=== PATIENT | female | born 1975 | race Asian ===

== ENCOUNTER 2016-12-14 09:27 | Emergency (ER) | payer BC ==
[~2016-12-14] VITALS: Ht 154.9 cm; Wt 55.0 kg
[~2016-12-14 09:27] MED LIST: ALPR-475 PO; FEBU40TA PO; IRON SUPPL; ONDA4TAB10 PO; OXYC-223 PO
[2016-12-14 10:46] LABS: BLOOD UREA NITROGEN 10 mg/dL (7-18)
[2016-12-14 10:51] LABS: ASPARTATE AMINO TRANSFERASE 11 U/L (15-37)
[2016-12-14 11:19] LABS: IS PT STATUS REG ER OR PRE ER? YES
[2016-12-14 11:35] VITALS: BP 126/85
== END 2016-12-14 11:55 | disposition home or self-care (01) ==
LOC: ED 10:16
DX: R55 Syncope and collapse (principal)
CPT/HCPCS: 36415; 71020; 80053; 84484; 84703; 85025; 85379; 85730; 93005

== ENCOUNTER 2018-07-27 01:47 | Emergency (ER) | payer BC, OTHER ==
[~2018-07-27] VITALS: Ht 154.9 cm; Wt 58.6 kg
[~2018-07-27 01:47] MED LIST changes: -OXYC-223 PO; +OXYC-306 PO
[2018-07-27 03:04] LABS: HCG UR SG 1.018 (1.003-1.030); MICROSCOPIC NOT IND
[2018-07-27 03:14] LABS: ALANINE AMINOTRANSFERASE 22 U/L (12-78); ALBUMIN 3.7 g/dL (3.4-5.0); ANION GAP 6 mmol/L (5-15); CALCIUM 8.5 mg/dL (8.5-10.1); CHLORIDE 110 mmol/L (98-107); CREATININE 0.64 mg/dL (0.55-1.02)
[2018-07-27 03:16] LABS: ALKALINE PHOSPHATASE 84 U/L (45-117); BILIRUBIN,TOTAL 0.2 mg/dL (0.2-1.0); TOTAL PROTEIN 7.5 g/dL (6.4-8.2)
[2018-07-27 03:16] LABS: CULTURE INDICATED? NO
[2018-07-27 03:28] LABS: BASOPHILS # (AUTO) 0.04 x10^3/uL (0-0.1); BASOPHILS % (AUTO) 1 % (0-1); EOSINOPHILS # (AUTO) 0.07 x10^3/uL (0-0.4); EOSINOPHILS % (AUTO) 1 % (1-7); LYMPHOCYTES # (AUTO) 1.33 x10^3/uL (1-3.4); LYMPHOCYTES % (AUTO) 22 % (22-44); MD NO; MEAN CORPUSCULAR HEMOGLOBIN 25.9 pg (27.0-34.8); MEAN CORPUSCULAR HGB CONC 32.4 g/dL (32.4-35.8); MEAN CORPUSCULAR VOLUME 79.8 fL (80-100); MEAN PLATELET VOLUME 9.6 fL (7.4-10.4); MONOCYTES # (AUTO) 0.44 x10^3/uL (0.2-0.8); MONOCYTES % (AUTO) 7 % (2-9); NEUTROPHILS # (AUTO) 4.32 x10^3/uL (1.8-6.8); NEUTROPHILS % (AUTO) 70 % (42-75); PLATELET COUNT 257 x10^3/uL (130-400); RED BLOOD COUNT 4.16 x10^6/uL (3.82-5.3)
[2018-07-27 03:50] VITALS: BP 158/86
[2018-07-27] MEDS ORDERED: METHOCARBAMOL 750 MG TABLET ONE (04:29)
[2018-07-27] MEDS ORDERED: HYDROcodone/APAP 5/325 TABLET ONE (04:30)
[2018-07-27] MEDS ORDERED: HYDROcodone/APAP 5/325 TABLET PO ONE (04:30)
[2018-07-27] MEDS ORDERED: METHOCARBAMOL 750 MG TABLET PO ONE (04:30)
== END 2018-07-27 04:58 | disposition home or self-care (01) ==
LOC: ED 04:47
DX: N93.8 Other specified abnormal uterine and vaginal bleeding (principal); N92.0 Excessive and frequent menstruation with regular cycle; N80.0 Endometriosis of uterus; S39.012A Strain of muscle, fascia and tendon of lower back, initial encounter; Z90.49 Acquired absence of other specified parts of digestive tract; X58.XXXA Exposure to other specified factors, initial encounter; Y93.89 Activity, other specified; Y92.89 Other specified places as the place of occurrence of the external cause; Y99.8 Other external cause status
CPT/HCPCS: 36415; 76830; 80053; 81003; 81025; 83690; 85025; 99284

== ENCOUNTER 2018-11-17 19:51 | Emergency (ER) | payer OTHER ==
[~2018-11-17] VITALS: Ht 154.9 cm; Wt 62.4 kg
[2018-11-17 19:54] VITALS: BP 155/92
== END 2018-11-17 21:57 | disposition home or self-care (01) ==
LOC: ED 21:51
DX: S93.601A Unspecified sprain of right foot, initial encounter (principal); Z90.49 Acquired absence of other specified parts of digestive tract; Y92.69 Other specified industrial and construction area as the place of occurrence of the external cause; X50.1XXA Overexertion from prolonged static or awkward postures, initial encounter; Y93.89 Activity, other specified; Y99.0 Civilian activity done for income or pay
CPT/HCPCS: 29515; 99283

== ENCOUNTER 2019-01-16 07:03 | Emergency (ER) | payer OTHER ==
[~2019-01-16] VITALS: Ht 154.9 cm; Wt 60.0 kg
--- NOTE | 2019-01-16 07:36 | NUR ---
Pt resting on gurney. animal services officer in room. NADN. No needs expressed at this time.
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
[2019-01-16] MEDS ORDERED: SODIUM CHLORIDE FLUSH 10ML SYR IVF ONE ×2 (08:00)
[2019-01-16] MEDS ORDERED: ONDANSETRON 2MG/ML, 2ML IVPush ONE (08:00)
--- NOTE | 2019-01-16 08:14 | NUR ---
Pt transported on gurney to [facility]. Both bedrails up for safety measures.
[2019-01-16] MEDS ORDERED: ONDANSETRON 2MG/ML, 2ML ONE (08:23)
[2019-01-16] MEDS ORDERED: MORPHINE SULFATE 4 MG/ML, 1ML ONE ×2 (08:23→10:16)
--- NOTE | 2019-01-16 08:31 | NUR ---
CT WAITING ON LAB REPORTS TO PERFORM EXAM - MA
[2019-01-16 09:10] LABS: BASOPHILS # (AUTO) 0.02 x10^3/uL (0-0.1); BASOPHILS % (AUTO) 0 % (0-1); EOSINOPHILS # (AUTO) 0.12 x10^3/uL (0-0.4); EOSINOPHILS % (AUTO) 2 % (1-7); LYMPHOCYTES # (AUTO) 1.39 x10^3/uL (1-3.4); LYMPHOCYTES % (AUTO) 21 % (22-44); MD NO; MEAN CORPUSCULAR HEMOGLOBIN 24.5 pg (27.0-34.8); MEAN CORPUSCULAR HGB CONC 30.7 g/dL (32.4-35.8); MEAN CORPUSCULAR VOLUME 79.8 fL (80-100); MEAN PLATELET VOLUME 9.4 fL (7.4-10.4); MONOCYTES # (AUTO) 0.59 x10^3/uL (0.2-0.8); MONOCYTES % (AUTO) 9 % (2-9); NEUTROPHILS # (AUTO) 4.36 x10^3/uL (1.8-6.8); NEUTROPHILS % (AUTO) 67 % (42-75); PLATELET COUNT 235 x10^3/uL (130-400); RED BLOOD COUNT 4.26 x10^6/uL (3.82-5.3); RED CELL DISTRIBUTION WIDTH 16.2 % (9.6-15.2)
[2019-01-16] MEDS: MORPHINE SULFATE 4 MG/ML, 1ML IVPush PRN ×2 (09:10→10:18)
--- NOTE | 2019-01-16 09:15 | NUR ---
Pt up to restroom with steady gait and balance to provide urine sample. NADN. No other needs requested.
[2019-01-16 09:19] LABS: ALANINE AMINOTRANSFERASE 34 U/L (12-78); ALBUMIN 4.1 g/dL (3.4-5.0); ANION GAP 6 mmol/L (5-15); CALCIUM 8.7 mg/dL (8.5-10.1); CHLORIDE 110 mmol/L (98-107); CREATININE 0.52 mg/dL (0.55-1.02)
[2019-01-16 09:21] LABS: ALKALINE PHOSPHATASE 99 U/L (45-117); BILIRUBIN,TOTAL 0.2 mg/dL (0.2-1.0); TOTAL PROTEIN 7.6 g/dL (6.4-8.2)
--- NOTE | 2019-01-16 09:26 | NUR ---
Pt back to room from restroom. Pt provided urine sample. Urine sent to lab. Pt connected to SPO2% monitor. Pt recieved medicaiton per EMAR. Called CT to let CT know pt is ready. CT stated verbal understanding. Pt gives verbal consent for her brother Rigo to be at bedside. NADN. No needs expressed. Call light within reach. Both bed rails up for safety measures.
[2019-01-16 09:34] LABS: HCG UR SG 1.021 (1.003-1.030); MICROSCOPIC NOT IND
[2019-01-16 09:37] LABS: CULTURE INDICATED? NO
[2019-01-16] MEDS ORDERED: OMNIPAQUE 350 MG/ML, 100ML BOTTLE ONE (09:51)
--- NOTE | 2019-01-16 10:09 | NUR ---
Pt c/o left "shoulder blade" posterior pain 03/09.
--- NOTE | 2019-01-16 10:10 | NUR ---
Pt requesting to use restroom. Pt requesting her brother to walk with her to restroom. Pt ambulates with steady gait and balance to restroom with her brother sbsadie.
--- NOTE | 2019-01-16 10:54 | NUR ---
LATE NOTE ENTRY FOR 1018: Provided medication per EMAR for pain. Pt appeciative. Pt connected to NIBP and continous pulse ox. NADN. Both bed reails up for safety measures. Call light within reach.
[2019-01-16 11:28] VITALS: BP 156/103
--- NOTE | 2019-01-16 11:36 | NUR ---
Patient given discharge instructions and they have confirmed that they understand the instructions. Patient ambulatory with steady gait. Pt left with d/c paperwork, prescription, work note, and all personal belongings.
== END 2019-01-16 11:37 | disposition home or self-care (01) ==
LOC: ED 08:02
DX: S20.02XA Contusion of left breast, initial encounter (principal); S20.01XA Contusion of right breast, initial encounter; S30.0XXA Contusion of lower back and pelvis, initial encounter; Y04.8XXA Assault by other bodily force, initial encounter; Z88.3 Allergy status to other anti-infective agents; Z91.048 Other nonmedicinal substance allergy status; Y93.89 Activity, other specified; Y92.89 Other specified places as the place of occurrence of the external cause; Y99.8 Other external cause status
CPT/HCPCS: 36415; 72110; 74177; 80053; 81003; 81025; 85025; 96374; 96375; 96376; 99284; J2405; Q9967

== ENCOUNTER 2021-02-18 19:09 | Emergency (ER) | payer OTHER ==
[~2021-02-18] VITALS: Ht 175.3 cm; Wt 60.4 kg
[~2021-02-18 19:09] MED LIST changes: -ALPR-475 PO; +ALPR0.5T7 PO; -OXYC-306 PO; +OXYC1TAB17 PO
[2021-02-18 23:00] VITALS: BP 155/82
== END 2021-02-18 23:37 | disposition home or self-care (01) ==
LOC: ED 23:05
DX: S16.1XXA Strain of muscle, fascia and tendon at neck level, initial encounter (principal); M25.511 Pain in right shoulder; R51.9 Headache, unspecified; Z98.51 Tubal ligation status; Z90.49 Acquired absence of other specified parts of digestive tract; V49.49XA Driver injured in collision with other motor vehicles in traffic accident, initial encounter; Y92.488 Other paved roadways as the place of occurrence of the external cause; Y93.89 Activity, other specified; Y99.8 Other external cause status
CPT/HCPCS: 72141; 99284